=== PATIENT | female | born 1960 | race Caucasian/White ===

== ENCOUNTER 2018-05-24 07:27 | Emergency (ER) | payer OTHER | END 2018-05-24 08:47 | disposition home or self-care (01) | LOC: FTE 07:27 | DX: G62.9 Polyneuropathy, unspecified (principal); I10 Essential (primary) hypertension | CPT/HCPCS: 99284; Z7502 ==

== ENCOUNTER 2019-05-24 00:58 | Inpatient (IN) | payer OTHER ==
[2019-05-24 01:26] LABS: ADD MAN DIFF? NO
[2019-05-24 01:27] LABS: BASOPHILS % 0.2 % (0.0-2.0); HEMATOCRIT 40.6 % (37.0-47.0); LYMPHOCYTES # 0.7 10^3/ul (0.8-2.9); LYMPHOCYTES % 6.2 % (15.0-51.0); MEAN CORPUSCULAR HEMOGLOBIN 30.1 pg (29.0-33.0); MEAN CORPUSCULAR HGB CONC 34.5 g/dl (32.0-37.0); MEAN CORPUSCULAR VOLUME 87.3 fl (82.0-101.0); MEAN PLATELET VOLUME 9.1 fl (7.4-10.4); MONOCYTE # 0.7 10^3/ul (0.3-0.9); MONOCYTES % 5.9 % (0.0-11.0); NEUTROPHIL # 9.9 10^3/ul (1.6-7.5); NEUTROPHILS % 87.3 % (39.0-77.0); PLATELET COUNT 351 10^3/UL (140-415); RED BLOOD COUNT 4.65 10^6/ul (4.20-5.40); RED CELL DISTRIBUTION WIDTH 13.2 % (11.5-14.5)
[2019-05-24 01:27] LABS: WHITE BLOOD COUNT 11.3 10^3/ul (4.8-10.8)
[2019-05-24 01:35] LABS: URINE BLOOD (Dip) POC Trace-intact (NEGATIVE); URINE GLUCOSE (Dip) POC Negative (NEGATIVE); URINE KETONES (Dip) POC 4+ (NEGATIVE); URINE LEUKOCYTE EST (Dip) POC Negative (NEGATIVE); URINE NITRITE (Dip) POC Negative (NEGATIVE); URINE TOTAL PROTEIN POC 2+ (NEGATIVE)
[2019-05-24] MEDS: SODIUM CHLORIDE 0.9% 1L BAG IV* (01:37)
[2019-05-24] MEDS: IBUPROFEN 600 MG TAB PO (01:44)
[2019-05-24] MEDS: ACETAMINOPHEN 325 MG TAB PO (01:44)
[2019-05-24 01:46] LABS: INR 0.89; PROTIME 12.2 Sec (11.9-14.9)
[2019-05-24 01:47] LABS: PARTIAL THROMBOPLASTIN TIME 24.4 Sec (23.0-35.0)
[2019-05-24 01:48] LABS: ALANINE AMINOTRANSFERASE 19 IU/L (13-69); ALBUMIN 4.4 g/dl (3.3-4.9); ALBUMIN/GLOBULIN RATIO 1.15; ALKALINE PHOSPHATASE 146 IU/L (42-121); ANION GAP 11 (5-13); ASPARTATE AMINO TRANSFERASE 24 IU/L (15-46); BILIRUBIN,INDIRECT 0.7 mg/dl (0-1.1); BILIRUBIN,TOTAL 0.7 mg/dl (0.2-1.3); BLOOD UREA NITROGEN 13 mg/dl (7-20); CALCIUM 9.1 mg/dl (8.4-10.2); CARBON DIOXIDE 26 mmol/L (21-31); CHLORIDE 104 mmol/L (97-110); CREATININE 0.53 mg/dl (0.44-1.00); Estimated GFR > 60 mL/min (>60); GLUCOSE 153 mg/dl (70-220); SODIUM 141 mmol/L (135-144); TOTAL PROTEIN 8.2 g/dl (6.1-8.1)
[2019-05-24 01:55] LABS: ADD UMIC YES; UR ASCORBIC ACID 40 mg/dL (NEGATIVE); UR BACTERIA FEW /HPF (NONE SEEN); UR BILIRUBIN (Dip) NEGATIVE (NEGATIVE); UR BLOOD (Dip) NEGATIVE (NEGATIVE); UR CLARITY SLIGHTLY CLOUDY (CLEAR); UR COLOR YELLOW (YELLOW); UR GLUCOSE (Dip) NEGATIVE (NEGATIVE); UR KETONES (Dip) 2+ mg/dL (NEGATIVE); UR LEUKOCYTE ESTERASE (Dip) NEGATIVE Leu/ul (NEGATIVE); UR MUCUS FEW /HPF (NONE SEEN); UR NITRITE (Dip) NEGATIVE (NEGATIVE); UR RBC 13 /HPF (0-5); UR TOTAL PROTEIN (Dip) 1+ mg/dl (NEGATIVE); UR UROBILINOGEN (Dip) NEGATIVE (NEGATIVE); UR WBC 4 /HPF (0-5)
[2019-05-24 01:59] LABS: POTASSIUM 2.7 mmol/L (3.5-5.1)
[2019-05-24 02:00] LABS: TROPONIN-I < 0.012 ng/ml (0.000-0.120)
[2019-05-24 02:10] LABS: MAGNESIUM 1.6 mg/dl (1.7-2.5)
[2019-05-24] MEDS: MAGNESIUM OXIDE 400 MG TAB PO (03:32)
[2019-05-24] MEDS: POTASSIUM CHLORIDE (SR) 20 MEQ TAB PO (03:32)
[2019-05-24] MEDS: POTASSIUM CHLORIDE 100 ML IVPB ×2 (03:32→11:09)
[2019-05-24 03:47] LABS: LACTIC ACID 1.1 mmol/L (0.5-2.0)
[2019-05-24] MEDS: CEFTRIAXONE 1 GM/50 ML (PMX) 50 ML IVPB (03:53)
[2019-05-24] MEDS ORDERED: BISACODYL (EC) 5 MG TAB PO (04:00)
[2019-05-24] MEDS ORDERED: ACETAMINOPHEN 325 MG TAB PO (04:00)
[2019-05-24] MEDS ORDERED: NACL 0.9% 3 ML SYG IV (04:00)
[2019-05-24] MEDS ORDERED: ONDANSETRON 4 MG INJ IV (04:00)
[2019-05-24] MEDS ORDERED: METOCLOPRAMIDE 10 MG INJ IV (04:00)
[2019-05-24] MEDS ORDERED: DOCUSATE SODIUM 100 MG CAP PO (04:00)
[2019-05-24] MEDS: MAGNESIUM SULFATE 3 GM in DEXTROSE 5% 100 ML IVPB (04:05)
[2019-05-24] MEDS: IOHEXOL 300MG/ML 150 ML BTL (04:19)
[2019-05-24] MEDS: SOD CHLORIDE 0.9% 100 ML (04:19)
[2019-05-24 04:24] LABS: LIPASE 58 U/L (23-300)
[2019-05-24] MEDS: morphine 2 MG INJ IV (04:54)
[2019-05-24 05:54] LABS: LACTIC ACID 1.3 mmol/L (0.5-2.0)
[2019-05-24 07:54] LABS: ALANINE AMINOTRANSFERASE 25 IU/L (13-69); ALBUMIN 3.2 g/dl (3.3-4.9); ALBUMIN/GLOBULIN RATIO 1.14; ALKALINE PHOSPHATASE 103 IU/L (42-121); ANION GAP 8 (5-13); ASPARTATE AMINO TRANSFERASE 20 IU/L (15-46); BILIRUBIN,INDIRECT 0.5 mg/dl (0-1.1); BILIRUBIN,TOTAL 0.5 mg/dl (0.2-1.3); BLOOD UREA NITROGEN 9 mg/dl (7-20); CALCIUM 7.9 mg/dl (8.4-10.2); CARBON DIOXIDE 24 mmol/L (21-31); CHLORIDE 111 mmol/L (97-110); CREATININE 0.43 mg/dl (0.44-1.00); Estimated GFR > 60 mL/min (>60); GLUCOSE 136 mg/dl (70-220); POTASSIUM 3.2 mmol/L (3.5-5.1); SODIUM 143 mmol/L (135-144)
[2019-05-24 09:39] LABS: MAGNESIUM 2.3 mg/dl (1.7-2.5)
[2019-05-24] MEDS: SOD CHLORIDE 0.9% 1,000 ML IV (10:48)
[2019-05-24 12:35] LABS: C-REACTIVE PROTEIN 1.6 mg/dl (0.0-0.9)
[2019-05-24 13:18] LABS: ERYTHROCYTE SEDIMENTATION RATE 20 mm/Hr (0-30)
== END 2019-05-24 17:42 | disposition home or self-care (01) | DRG 392 ==
LOC: E/R 00:58 → 2NE 04:02
PROVIDERS: Family Medicine
DX: A08.4 Viral intestinal infection, unspecified (principal); R65.10 Systemic inflammatory response syndrome (SIRS) of non-infectious origin without acute organ dysfunction; E87.6 Hypokalemia; E83.42 Hypomagnesemia; E86.0 Dehydration; K52.9 Noninfective gastroenteritis and colitis, unspecified; I10 Essential (primary) hypertension; F32.9 Major depressive disorder, single episode, unspecified
CPT/HCPCS: 36415; 71045; 74178; 80053; 81001; 81003; 83605; 83690; 83735; 84484; 85025; 85610; 85651; 85730; 86140; 87040-91; 87086; 93005; 96365; 96375; 99285-25